=== PATIENT | female | born 1980 | race Caucasian/White ===

== ENCOUNTER 2022-01-14 09:28 | Outpatient (CLI) | payer OTHER, SELFPAY ==
--- NOTE | 2022-01-14 09:51 | ECG_ITS ---
Measurements Intervals [place] Rate: 81 P: 8 NE: 168 QRS: 68 QRSD: 89 T: 65 QT: 375 QTc: 436 Interpretive Statements SINUS RHYTHM NO PREVIOUS ECG AVAILABLE FOR COMPARISON Electronically Signed On 01-14-2022 11:26:33 DISPUTE RESOLUTION SPECIALIST by Frank Cali M.D.
[2022-01-14 10:52] LABS: Basophils Absolute Auto 0.1 K/mm3 (0.0-0.1); Basophils Percent Auto 0.6 % (0.2-1.2); Eosinophils Absolute Auto 0.2 K/mm3 (0-0.3); Eosinophils Percent Auto 1.9 % (0-4.4); Hematocrit 41.6 % (37.0-47.0); Hemoglobin 13.4 g/dL (12.0-15.0); Immature Granulocyte Absolute 0.07 K/mm3 (0.00-0.031); Immature Granulocyte Percent A 0.9 % (0-0.5); Lymphocytes Absolute Auto 2.56 K/mm3 (0.9-3.2); Lymphocytes Percent Auto 32.3 % (18.3-44.2); Mean Corpuscular HGB Conc 32.2 g/dl (32-36); Mean Corpuscular Hemoglobin 27.1 pg (26-34); Mean Platelet Volume 8.7 fl (7.4-10.4); Monocytes Absolute Auto 0.4 K/mm3 (0.1-0.6); Monocytes Percent Auto 4.9 % (2.6-8.5); Neutrophils Absolute Auto 4.7 K/mm3 (1.3-6.7); Neutrophils Percent Auto 59.4 % (45.5-73.1); Platelet Count Result 441 k/mm3 (150-375); Red Blood Count 4.95 M/mm3 (4.2-5.4); Red Cell Distribution Width 12.8 % (11.5-14.5); White Blood Count 7.9 K/mm3 (4.5-10.0)
== END 2022-01-14 09:29 | disposition home or self-care (01) ==
LOC: ANHSURGERY 09:33
PROVIDERS: PCP Nurse Practitioner Family; Visit Provider Obstetrics & Gynecology
DX: Z01.812 Encounter for preprocedural laboratory examination (principal); Z01.810 Encounter for preprocedural cardiovascular examination; N81.4 Uterovaginal prolapse, unspecified; I10 Essential (primary) hypertension
CPT/HCPCS: 36415; 85025; 86850; 86900; 86901; 93005

== ENCOUNTER 2022-01-18 00:26 | Day surgery (SDC) | payer OTHER, SELFPAY ==
[2022-01-08 15:15] VITALS: BMI 49.9
--- NOTE | 2022-01-08 15:22 | PC.NURSE ---
Report to the Outpatient Waiting Room, entrance under the green pavilion located off [facility], at time 6:00 on date 01/18/22. Planned Procedure Time: 7:30. Time changes happen often and if your time is changed the preop area will call you the afternoon before. - You and your visitor will be asked to self-screen and do not enter if you have any COVID symptoms. - Only one visitor is requested with a max of two and NO children visitors are allowed at this time. - The patient visitor may be requested to leave or wait in car when not with patient due to distancing restrictions. - A mask is optional within the hospital. Patients may have clear liquids (water, carbonated beverages, clear teas, apple juice) until 3 hours prior to surgery (4:30) with a maximum of 20 ounces. - No food from midnight until time of surgery Take the following medications with a SIP of water the morning of surgery: N/A Medications to discontinue per physician: N/A Date to take last dose: N/A Please no make-up, nail irish, hairspray, perfume, deodorant, or body powder the day of surgery. No jewelry (including any body piercings) or valuables the day of surgery, leave them at home. Please take a shower or bath the night before, or the morning of, surgery with an antibacterial soap. Wear comfortable, loose fitting clothing. - Jewelry must be removed prior to entering the operating room. Rings and piercings that are not removed may be cut off. - The hospital will not accept responsibility for valuables. - Please leave all valuables, including medications, at home the day of surgery. If you are going home after surgery, a licensed [employer] flatbed driver must drive you home. - NO public transportation without another adult if you receive anesthesia. - We recommend that an adult stay with you for 24 hours following discharge. - We also recommend that you do not drive, make important decision, drink alcoholic beverages, or take any drugs that were not prescribed by your health care provider for at least 24 hours after your discharge time. Follow any additional instructions given to you from your surgeon. If you or anyone in your household have experienced Covid symptoms in the past week, please notify your surgeon or the nurse liaison at the phone number below for possible testing. Telephone instructions given to PT - AISHA RG and asked if any additional questions and then verbalized understanding. Patient advised to call surgeon office or pre surgery nurse liaison [phone] if any additional questions.
--- NOTE | 2022-01-16 07:46 | PM.IMHP ---
H&P: HPI History of Present Illness Date/Time: 01/16/22 07:46 Chief Complaint: Uterine prolapse with irregular bleeding refractory to medical therapy Narrative: this is a 41-year-old female who is admitted for robotic hysterectomy and bilateral salpingectomy secondary to bleeding enlarged uterus and pelvic pain. Risks and benefits reviewed including not exclusive of , aspiration pneumonia, bleeding, transfusion, perforation injury to bowel, bladder, ureters, or other internal organs the need for open laparotomy. She received the ACOG handout entitled hysterectomy as well as the de [facility]ami handout. She had all questions answered and asked to proceed she did sign the [facility] consent form as well PMFSH Social History Social History Smoking packs per day: 1.5 Smoking cigarettes per day: 30.0 Years smoked: 10 Smoking pack-years: 15.00 Smoking status: Former smoker Tobacco type: cigarettes Smoking end date: 02/10/05 Alcohol intake: never Substance use: never Substance use type: does not use Spiritual care concerns: No Meds Home Medications and Allergies Home Medications Medication Instructions Recorded Confirmed Type No Home Medications 01/08/22 01/08/22 History Allergies Allergy/AdvReac Type Severity Reaction Status Date / Time hydralazine Allergy Flushing Verified 01/08/22 15:14 Exam Const: General: cooperative, healthy appearing and comfortable Nutritional Appearance: obese Orientation/consciousness: oriented to person, oriented to place and oriented to time HENMT: Head: normal to inspection Resp: Effort & Inspection: normal respiratory effort Cardio: Rate: regular rate Rhythm: regular rhythm Heart sounds: S1 normal heart sound present and S2 normal heart sound present GI: Inspection: normal to inspection and obesity Auscultation: normal bowel sounds : Speculum Exam - Vagina: normal appearance of the vagina Speculum Exam - Cervix: normal appearance of the cervix Bimanual exam- vagina & uterus: enlarged and Uterine tenderness Bimanual Exam- Adnexa, other: normal adnexae Assessment and Plan Assessment and plan (1) Uterine prolapse: Code(s): N81.4 - Uterovaginal prolapse, unspecified Status: Acute (2) Pelvic pain: Code(s): R10.2 - Pelvic and perineal pain Status: Acute (3) Vaginal bleeding: Code(s): N93.9 - Abnormal uterine and vaginal bleeding, unspecified Status: Acute Plan robotic total vaginal hysterectomy and bilateral salpingectomy
[2022-01-18] VITALS (12 sets, daily range): BP systolic 91–189; BP diastolic 56–107; PULSE 56–92; RESP 15–19; TEMP 36–37.5; O2SAT 95–99
[2022-01-18] MEDS: ACETAMINOPHEN 500 MG TABLET 1000 MG PO (06:45)
[2022-01-18] MEDS: LACTATED RINGERS 1,000 ML 30 ML IV CONT ×2 (07:00→09:45)
[2022-01-18] MEDS: KETOROLAC 15 MG/ML VIAL (*BKC) IV PUSH (07:10)
--- NOTE | 2022-01-18 07:11 | WPDHPUPDATE1 ---
History and Physical Update Update Date/Time: 01/18/22 07:11 History and Physical has been reviewed, including an updated exam of the patient. There are NO changes in the patient's condition. Risks, benefits, and alternatives have been discussed and questions answered. Patient agrees to proceed with procedure.
--- NOTE | 2022-01-18 07:15 | P.PNAN_ITS ---
Anes - Initial Pre Proc Eval Procedure: Operation Date: 01/18/22 07:30 Proposed Procedures p Robotic Assisted Total Vaginal Hysterectomy with Bilateral Salpingectomy - Ariel Burton MD Date/Time: 01/18/22 07:15 Surgeon: Ariel Burton MD Pre Op Diagnosis: 2nd deg uterine prolapse, pain, irregular bleeding Patient Data Age: 41 Gender: F Height: 1.65 m Weight: 138.7 kg Last Vital Signs Temp 36.0 C L 01/18/22 06:54 Pulse 92 01/18/22 06:54 Resp 16 01/18/22 06:54 BP 172/90 H 01/18/22 06:54 Pulse Ox 99 01/18/22 06:54 O2 Del Method Room Air 01/18/22 06:54 Allergies Allergy/AdvReac Type Severity Reaction Status Date / Time hydralazine Allergy Flushing Verified 01/18/22 06:24 Home Medications Medication Instructions Recorded Confirmed Type albuterol sulfate 90 mcg/actuation 90 mcg inhalation PRN 01/18/22 01/18/22 History aerosol inhaler amlodipine 5 mg tablet 5 mg PO DAILY 01/18/22 01/18/22 History amoxicillin 500 mg capsule 500 mg PO DAILY 01/18/22 01/18/22 History hydrocodone 5 mg-acetaminophen 325 1 tablet PO Q4H PRN pain #30 tabs 01/18/22 Rx mg tablet rimegepant 75 mg disintegrating 75 mg PO PRN 01/18/22 01/18/22 History tablet (Nurtec ODT) Patient hx anesthesia problems: none Family hx anesthesia problems: none Results Review: All pre-operative results and documents have been reviewed as part of the pre- operative evaluation. [facility] Past Medical History Medical History (Updated 01/18/22 @ 07:16 by Daniele Casillas MD) Asthma PARTH (obstructive sleep apnea) Social History Social History Smoking packs per day: 1.5 Smoking cigarettes per day: 30.0 Years smoked: 10 Smoking pack-years: 15.00 Smoking status: Former smoker Tobacco type: cigarettes Smoking end date: 02/10/05 Alcohol intake: never Substance use: never Substance use type: does not use Living arrangements: with family Spiritual care concerns: No Anes - Eval Final PreProcedure Day of Procedure 01/18/22 07:15 Patient weight: super morbidly obese Heart: regular rate and rhythm Lungs: decreased breath sounds Airway: Mallampati scale class II Neurological: alert and oriented Last oral intake: >/= 8 hours ASA classification: III Emergent: no Anesthetic plan: proceed Anesthesia type and monitoring: general ETT and standard monitoring Results Review: All pre-operative results and documents have been reviewed as part of the pre- operative evaluation. Informed Consent: The patient's anesthetic plan and its attendant risks and benefits were discussed with the patient/family/POA. Questions were solicited and answers provided to the satisfaction of the patient/family/POA.
[2022-01-18] MEDS: ceFAZolin 3 GM/D5W 100 ML 100 ML IVPB (07:30)
--- NOTE | 2022-01-18 08:47 | W.PM.PROC2 ---
Procedure Note - Detailed Date of Procedure 01/18/22 Pre-op Diagnosis 2nd deg uterine prolapse, pain, irregular bleeding Post-op Diagnosis Same Procedure Performed Robotic total vaginal hysterectomy and bilateral salpingectomy Surgeon Ariel Burton MD Anesthesia General Indications this is a 41-year-old female with uterine prolapse enlarged uterus bleeding Findings enlarged uterus that appeared adenomyosis ECMO normal-appearing ovaries and tubes Description of Procedure the patient is prepped draped in the sterile fashion placed in dorsal lithotomy position. Under excellent general trach anesthesia weighted speculum placed posterior fornix vagina. Anterior lip of the cervix grasped with single-tooth tenaculum the uterus sounded to 10cm. Serial dilatation with fragmented dilators performed followed by passes the 8. MILI and the 3. Cold cup. Next the 16 Pashto catheter placed bladder drained clear urine the weighted speculum and single-tooth removed. The gloves were changed. Suprapubic incision made the Veress needle passed in the abdomen. Abdomen filled with CO2 gas 15mmmmmercury. The 8mm trocar advanced the abdomen. Downside visualized no injury seen. Gas reattached the patient placed in Trendelenburg. Right left lateral flap incisions made thinking and the 8mm trocars advanced underDirect visualization assuring no injury right upper quadrant incision made and the 8mm trocar advanced under direct visualization assuring no injury. The robot was docked. Attention was turned to the console. The left round ligament was grasped, burned, cut. Anterior bladder flap was formed by sharply dissecting the peritoneum and reflecting the bladder caudally to the opposite round ligament which was clamped, burned, cut. Next the left fallopian tube was skeletonized removed from the attachment to the ovary and left attached to the uterine origin. This was repeated on the contralateral side with the right tube. Next utero-ovarian ligament was skeletonized to conserve the right ovary this was clamped, burned, cut. Next the left utero-ovarian ligament was skeletonized clamped being burning and cutting until reaching the previously cut round ligament. The cardinal broad ligaments on the left were then serially skeletonized clamping burning and cutting and bringing this down lateral edge of the uterus hugging the cervix uterus until the uterine vessels could be seen on the left. These were individually clamped, burned, cut there were large and tortuous. Cardinal broad ligaments on the right were serially skeletonized clamping burning cutting hugging the cervix uterus until the uterine vessels could be seen on the right. These were individually clamped, burned, cut. Excellent blanching of the uterus and cervix were noted. Colpotomy incision made in the cervix uterus and tubes removed through the vagina. Vagina was then closed with continuous running 0V lock from lateral edge to lateral edge back to the midline. Irrigation undertaken until clear. Hemostasis was assured. The robot was undocked. The gas removed from the abdomen. The trocars removed. Incisions closed with 4 Monocryl and glue. The patient was awakened and went to recovery in satisfactory condition. All sponge, needle, instrument counts were correct. Estimated Blood Loss 25 Drains No Packing No Pathology Yes Complications No immediate complications Condition Stable Disposition PACU
[2022-01-18] MEDS: fentaNYL CITRATE INJ (*CRX) 100 MCG/2 ML VIAL 25 MCG IV PUSH ×2 (09:35→09:55)
[2022-01-18] MEDS: DEXTROSE 5%/LACTATED RINGERS 1,000 ML 125 ML IV CONT (10:36)
[2022-01-18] MEDS: KETOROLAC 30 MG/ML VIAL (*BKC) IV PUSH (10:37)
[2022-01-18] MEDS: ENOXAPARIN 40 MG/0.4 ML SYRINGE SUB-Q (10:37)
--- NOTE | 2022-01-18 14:55 | P.DS_ITS ---
DS: Admitting Diagnosis Discharge Date 01/19/2022 Admitting Diagnosis vaginal bleeding/pelvic pain/ prolapse DS: Discharge Diagnosis Discharge Diagnosis (1) Vaginal bleeding: Code(s): N93.9 - Abnormal uterine and vaginal bleeding, unspecified Status: Acute (2) Pelvic pain: Code(s): R10.2 - Pelvic and perineal pain Status: Acute (3) Uterine prolapse: Code(s): N81.4 - Uterovaginal prolapse, unspecified Status: Acute DS: Summary Hospital Course Reason for hospitalization: patient was admitted for robotic total vaginectomy salpingectomy. Hospital Course: She robotic total vaginal hysterectomy and bilateral salpingectomy 01/18/2022. Her hospital course unremarkable. She remained afebrile. She was up, voiding without difficulty, ambulating complaints. Time Spent with Patient Time attestation: Total time spent providing and/or coordinating discharge services: Exam Const: General: cooperative, healthy appearing and comfortable Nutritional Appearance: average body habitus Orientation/consciousness: oriented to person, oriented to place and oriented to time HENMT: Head: normal to inspection Resp: Effort & Inspection: normal respiratory effort GI: Inspection: normal to inspection, incision ( Wounds clean dry and intact ), Pannus present and obesity Auscultation: normal bowel sounds DS: Data Data Completed and Pending Pending studies at discharge: Pending at discharge 01/18/22 08:46 Surgical [PTH] Routine Discharge Plan Discharge Patient Disposition: Home, Self-Care Discharge Instructions: Call or return if temperature above 100.4? F, increased abdominal pain, increased vaginal bleeding or any new problems. Patient Instructions: Laparoscopic Hysterectomy (DC) Stand Alone Forms: General Discharge Instructions Follow-up/Referrals: Ariel Thomson MD [Physician] - 2 Weeks Discharge Medications: New hydrocodone-acetaminophen 5-325 mg tablet 1 tablet PO Q4H PRN (Reason: pain) Qty: 30 0RF Continued amoxicillin 500 mg capsule 500 mg PO DAILY Label Comments: Pt on for strep, been on over a week amlodipine 5 mg tablet 5 mg PO DAILY albuterol sulfate 90 mcg/actuation HFA aerosol inhaler 90 mcg INHALATION PRN Nurtec ODT 75 mg tablet,disintegrating 75 mg PO PRN
[2022-01-18] MEDS: HYDROcodone/acetaminophen (*CRX) 5-325 MG TABLET 1 TAB PO (15:57)
[2022-01-18] MEDS: IBUPROFEN 600 MG TABLET PO (19:34)
[2022-01-18] MEDS: DOCUSATE SODIUM 100 MG CAPSULE PO (19:35)
[2022-01-18] MEDS: amLODIPine BESYLATE 5 MG TABLET PO (20:58)
[2022-01-19 00:07] VITALS: PULSE 90
[2022-01-19] MEDS: LABETALOL HCL INJ 100 MG/20 ML VIAL 200 MG IV PUSH (00:07)
[2022-01-19 05:27] LABS: Basophils Percent Auto 0.2 % (0.2-1.2); Hematocrit 36.6 % (37.0-47.0); Hemoglobin 11.8 g/dL (12.0-15.0); Immature Granulocyte Absolute 0.08 K/mm3 (0.00-0.031); Immature Granulocyte Percent A 0.5 % (0-0.5); Lymphocytes Absolute Auto 2.59 K/mm3 (0.9-3.2); Lymphocytes Percent Auto 16.9 % (18.3-44.2); Mean Corpuscular HGB Conc 32.2 g/dl (32-36); Mean Corpuscular Hemoglobin 26.6 pg (26-34); Mean Corpuscular Volume 82.4 fl (80-100); Mean Platelet Volume 8.7 fl (7.4-10.4); Monocytes Absolute Auto 0.6 K/mm3 (0.1-0.6); Monocytes Percent Auto 3.8 % (2.6-8.5); Neutrophils Absolute Auto 12.1 K/mm3 (1.3-6.7); Neutrophils Percent Auto 78.6 % (45.5-73.1); Platelet Count Result 425 k/mm3 (150-375); Red Blood Count 4.44 M/mm3 (4.2-5.4); White Blood Count 15.4 K/mm3 (4.5-10.0)
[2022-01-19 08:45] VITALS: BP 150/84; PULSE 88; RESP 18; TEMP 36.6; O2SAT 97
--- NOTE | 2022-01-19 08:51 | PM.GYNPNOP ---
TRANSPORTATION SECURITY SCREENER - A/P Assessment and plan (1) Vaginal bleeding: Code(s): N93.9 - Abnormal uterine and vaginal bleeding, unspecified Status: Acute Assessment and Plan: A: POD#1, s/p robotic assisted TVHBS, doing well. P: Home to f/u 2 weeks. (2) Pelvic pain: Code(s): R10.2 - Pelvic and perineal pain Status: Acute Postoperative Procedures: Procedures Operation Date: 01/18/22 07:30 Actual Procedure Side Surgeon p Robotic Assisted Total Vaginal Hysterectomy with Bilateral Salpingectomy Bilateral Ariel Burton MD Time Spent With Patient Time: Total time spent is greater than 50% in coordination of care (as documented) at patient's floor/unit and/or counseling patient: Time with patient: less than 15 minutes TRANSPORTATION SECURITY SCREENER- PN:Subj Post-Op Subjective Date/time seen: 01/19/22 08:51 Interval history: Pain OK. Tolerating diet. Voiding. Would like to go home. Exam Narrative: AVSS I/O OK ABD soft, nontender. Incisions c/d/i. EXT nontender TRANSPORTATION SECURITY SCREENER - PN: Obj Data Vital Signs Vital Signs: Vital Signs - 24 hr 01/18/22 09:01 01/18/22 09:15 01/18/22 09:31 Temperature 37.5 C Pulse Rate 57 L 56 L 64 Respiratory Rate 16 19 18 Blood Pressure 91/60 L 108/56 L 139/78 Pulse Oximetry 95 95 98 Oxygen Delivery Simple Face Mask Simple Face Mask Simple Face Mask Oxygen Flow Rate 8 8 8 01/18/22 09:32 01/18/22 09:46 01/18/22 10:00 Temperature Pulse Rate 63 60 Respiratory Rate 17 15 Blood Pressure 142/76 H 116/99 H Pulse Oximetry 95 97 Oxygen Delivery Room Air Nasal Cannula Nasal Cannula Oxygen Flow Rate 2 2 01/18/22 11:48 01/18/22 10:15 01/18/22 10:10 Temperature 37.1 C 36.7 C Pulse Rate 73 62 Respiratory Rate 16 16 Blood Pressure 168/77 H 155/74 H Pulse Oximetry 99 99 98 Oxygen Delivery Nasal Cannula Oxygen Flow Rate 2 01/18/22 12:30 01/18/22 16:00 01/18/22 16:00 Temperature 37.1 C Pulse Rate 73 92 73 Respiratory Rate 16 18 16 Blood Pressure 152/81 H Pulse Oximetry 99 95 99 Oxygen Delivery Nasal Cannula Room Air Oxygen Flow Rate 2 01/18/22 19:35 01/19/22 00:07 Temperature 36.4 C Pulse Rate 70 90 Respiratory Rate 18 Blood Pressure 189/107 H Pulse Oximetry 97 Oxygen Delivery Oxygen Flow Rate Intake/Output Intake/Output: Intake & Output 01/16/22 01/17/22 01/18/22 01/19/22 23:59 23:59 23:59 23:59 Intake Total 1000 700 Output Total 3030 1200 Balance -2030 -500 Meds/Results Medications: Active Medications Generic Name Dose Route Start Last Admin Trade Name Freq PRN Reason Stop Dose Admin Hydrocodone Bitart/Acetaminophen 1 tab 01/18/22 10:04 01/18/22 15:57 Hydrocodone/Acetaminophen (*Crx) 5-325 Mg Tablet PO 1 tab Q3H PRN Administration Pain Rated 5 or Less Hydrocodone Bitart/Acetaminophen 1 tab 01/18/22 10:04 Hydrocodone/Acetaminophen (*Crx) 10-325 Mg Tablet PO Q3H PRN Pain Rated 6 or Greater Amlodipine Besylate 5 mg 01/18/22 20:00 01/18/22 20:58 Amlodipine Besylate 5 Mg Tablet PO 5 mg DAILY ILIANA Administration Docusate Sodium 100 mg 01/18/22 10:04 01/18/22 19:35 Docusate Sodium 100 Mg Capsule PO 100 mg BID ILIANA Administration Enoxaparin Sodium 40 mg 01/18/22 10:04 01/18/22 10:37 Enoxaparin 40 Mg/0.4 Ml Syringe SUB-Q 40 mg DAILY ILIANA Administration Dextrose/Lactated Ringer's 1,000 mls @ 125 mls/hr 01/18/22 10:04 01/18/22 10:36 Dextrose 5%/Lactated Ringers IV CONT 125 mls/hr .Q8H ILIANA Administration Ibuprofen 600 mg 01/18/22 10:04 01/18/22 19:34 Ibuprofen 600 Mg Tablet PO 600 mg Q6H PRN Administration Cramping Ketorolac Tromethamine 30 mg 01/18/22 10:04 01/18/22 10:37 Ketorolac 30 Mg/Ml Vial (*Bkc) IV PUSH 01/23/22 10:03 30 mg Q6H PRN Administration Pain Rated 4-6 Naloxone HCl 0.1 mg 01/18/22 10:04 Naloxone Hcl 0.4 Mg/Ml Vial IV PUSH Q2M PRN Respiratory rate less than 10 Ondansetron HCl
--- NOTE | 2022-01-19 08:53 | P.DS_ITS ---
DS: Admitting Diagnosis Discharge Date 01/19/22 Admitting Diagnosis Enlarged uterus, pain DS: Discharge Diagnosis Discharge Diagnosis (1) Vaginal bleeding: Code(s): N93.9 - Abnormal uterine and vaginal bleeding, unspecified Status: Acute (2) Pelvic pain: Code(s): R10.2 - Pelvic and perineal pain Status: Acute DS: Summary Hospital Course Hospital Course: Admitted to the hospital on the date of scheduled surgery. Did well postoperatively. Time Spent with Patient Time attestation: Total time spent providing and/or coordinating discharge services: DS: Data Data Completed and Pending Pending studies at discharge: Pending at discharge 01/18/22 08:46 Surgical [PTH] Routine Labs on day of discharge: Labs from last 24 hours 01/19/22 04:09 WBC 15.4 H RBC 4.44 Hgb 11.8 L Hct 36.6 L MCV 82.4 MCH 26.6 MCHC 32.2 RDW 13.0 Plt Count 425 H MPV 8.7 Immature Gran % (Auto) 0.5 Neut % (Auto) 78.6 H Lymph % (Auto) 16.9 L [place] % (Auto) 3.8 Eos % (Auto) 0.0 Baso % (Auto) 0.2 Lymph # (Auto) 2.59 [place] # (Auto) 0.6 Eos # (Auto) 0.0 Baso # (Auto) 0.0 Abs Immat Gran (auto) 0.08 H Absolute Neuts (auto) 12.1 H Absolute Nucleated RBC 0.0 Nucleated RBC % 0.0 Discharge Plan Discharge Patient Disposition: Home, Self-Care Discharge Instructions: Call or return if temperature above 100.4? F, increased abdominal pain, increased vaginal bleeding or any new problems. Patient Instructions: Laparoscopic Hysterectomy (DC) Stand Alone Forms: General Discharge Instructions Follow-up/Referrals: Ariel Thomson MD [Physician] - 2 Weeks Discharge Medications: New hydrocodone-acetaminophen 5-325 mg tablet 1 tablet PO Q4H PRN (Reason: pain) Qty: 30 0RF Continued amoxicillin 500 mg capsule 500 mg PO DAILY Label Comments: Pt on for strep, been on over a week amlodipine 5 mg tablet 5 mg PO DAILY albuterol sulfate 90 mcg/actuation HFA aerosol inhaler 90 mcg INHALATION PRN Nurtec ODT 75 mg tablet,disintegrating 75 mg PO PRN
[2022-01-19 09:00] VITALS: PULSE 88; RESP 18; O2SAT 97
[2022-01-19] MEDS: IBUPROFEN 600 MG TABLET PO (09:15)
[2022-01-19] MEDS: ENOXAPARIN 40 MG/0.4 ML SYRINGE SUB-Q (09:15)
[2022-01-19] MEDS: amLODIPine BESYLATE 5 MG TABLET PO (09:16)
[2022-01-19] MEDS: DOCUSATE SODIUM 100 MG CAPSULE PO (09:16)
== END 2022-01-19 10:50 | disposition home or self-care (01) ==
LOC: ANHSURGERY 07:12 → ANHOB2 10:10
PROVIDERS: PCP Nurse Practitioner Family; Visit Provider Obstetrics & Gynecology
PROC: (CPT 58552; principal; 2022-01-18 07:30)
DX: N81.2 Incomplete uterovaginal prolapse (principal); N93.9 Abnormal uterine and vaginal bleeding, unspecified; D25.1 Intramural leiomyoma of uterus; R10.2 Pelvic and perineal pain; N87.9 Dysplasia of cervix uteri, unspecified; J45.909 Unspecified asthma, uncomplicated; G47.33 Obstructive sleep apnea (adult) (pediatric); Z79.51 Long term (current) use of inhaled steroids; E66.01 Morbid (severe) obesity due to excess calories; Z68.43 Body mass index [BMI] 50.0-59.9, adult; Z87.891 Personal history of nicotine dependence
CPT/HCPCS: 58552; S2900; 36415; 85025; 88307; 99199; A9270; J0330; J0690; J1100; J1650; J1885; J2250; J2704; J2710; J3010; J7030; J7120; J7121

== ENCOUNTER 2022-11-07 08:02 | Outpatient (CLI) | payer OTHER, SELFPAY ==
--- NOTE | ~2022-11-07 | US_ITS ---
Limited Abdominal Sonogram: Real-time sonographic imaging of the right upper quadrant was performed. Clinical History: Right upper quadrant pain Findings: The liver appears normal with no evidence of mass lesion or bile duct dilatation. Main por naldo vein demonstrates normal direction of flow. The gallbladder is well distended, and appears normal with no evidence of gallstone or wall thickening. The common bile duct measures 4 mm. The visualize d pancreas, aorta, and IVC are unremarkable. Impression: No significant abnormality seen. Reviewed, dictated and finalized at location M. Impression: No significant abnormality seen.
== END 2022-11-07 08:03 | disposition home or self-care (01) ==
PROVIDERS: PCP Family Medicine; Visit Provider Physician Assistant
DX: R10.11 Right upper quadrant pain (principal)
CPT/HCPCS: 76705

== ENCOUNTER 2023-01-13 13:02 | Outpatient (CLI) | payer OTHER, SELFPAY ==
--- NOTE | ~2023-01-13 | US_ITS ---
EXAMINATION: US thyroid DATE: 01/13/2023 14:27 INDICATION: Nontoxic goiter TECHNIQUE: Multiple ultrasound images of the thyroid were obtained. COMPARISON: None. FINDINGS: The right thyroid lobe measures 5.1 x 2.4 x 2.8 cm. The left thyroid lobe measures 5.5 x 2.3 x 3.2 c m. There are similar-appearing solid wider than tall solid heterogeneously isoechoic to hypoechoic m asses at the inferior aspect of the left and right thyroid lobes with lobular margins and without ech ogenic foci (TI-RADS 4, moderately suspicious , FNA if >=1.5 cm, annual followup is >=1 cm) on the le ft measuring 3.1 x 2.2 x 2.2 cm and on the right measuring 3.0 x 2.2 x 3.0 cm. The left thyroid lobe there is a 1 cm wider than tall solid isoechoic nodule with hypoechoic halo, smooth margins and witho ut echogenic foci and a 1.1 cm very hypoechoic wider than tall solid nodule with smooth margins and w ithout echogenic foci, both also TI RADS 4. IMPRESSION: 1. Multinodular goiter. Recommend ultrasound-guided biopsy of the ~3 cm TI RADS 4 nodules at the infe rior left and right thyroid lobes. 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 Multinodular goiter. Recommend ultrasound-guided biopsy of the ~3 cm TI RADS 4 nodules at the inferior left and right thyroid lobes.
== END 2023-01-13 13:03 | disposition home or self-care (01) ==
PROVIDERS: PCP Family Medicine; Visit Provider Family Medicine
DX: E04.2 Nontoxic multinodular goiter (principal)
CPT/HCPCS: 76536

== ENCOUNTER 2023-02-05 12:35 | Outpatient (CLI) | payer OTHER, SELFPAY ==
--- NOTE | ~2023-02-05 | US_ITS ---
EXAMINATION: US FNA w image guidance, US FNA additional DATE: 02/05/2023 13:49 (accession [id number]), 02/05/2023 14:58 (accession [id number]) INDICATION: Bilateral thyroid nodules TECHNIQUE: A time-out was performed to verify the patient's name, date of , and procedure to be performed . The procedure and its benefits and risks were discussed with the patient. Risks specifically discus sed included bleeding and infection. The patient understood the risks and agreed to proceed. The neck was prepped and draped in the usual sterile manner. A total of 7 mL 1% lidocaine was used for local anesthesia provided the left and right thyroid lobes. A total of 6 passes were made with a 25G needle into the right thyroid nodule and 6 passes were made with a 25G needle into the left thyroid nodule. Appropriate needle location was documented with continuous sonographic guidance. Sterile bandages w ere applied. There were no immediate complications. FINDINGS: Grayscale ultrasound images demonstrate biopsy needles advanced into both of the 3 cm masses at the i nferior left and at the inferior right thyroid lobes. IMPRESSION: 1. Successful ultrasound-guided fine needle aspiration of a 3 cm TI RADS 4 mass at the inferior righ t thyroid. Successful ultrasound-guided fine-needle aspiration of a 3 cm TI RADS 4 mass at the inferior left thy roid. 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 Successful ultrasound-guided fine needle aspiration of a 3 cm TI RADS 4 mas s at the inferior right thyroid. Successful ultrasound-guided fine-needle aspiration of a 3 cm TI RADS 4 mass at the inferior left thyroid.
== END 2023-02-05 12:36 | disposition home or self-care (01) ==
PROVIDERS: PCP Family Medicine; Visit Provider Family Medicine
DX: E04.9 Nontoxic goiter, unspecified (principal)
CPT/HCPCS: 10005; 10006; 88172; 88173; 88305

== ENCOUNTER 2023-02-18 12:30 | Outpatient (RCR) | payer OTHER, SELFPAY ==
--- NOTE | 2023-01-09 14:08 | PTOPEVAL1 ---
Assessment and note entered by Kimberly Najera, PT Evaluation Information Assessment Status Evaluation Diagnosis left knee pain, patellofemoral syndrome unspec knee Subjective Information Pt reports left knee pain. States started about , no traumatic event. Went from hardly hurting to hurting really badly very quickly. no traumatic event, would hurt worst at night. Took Diclofenac and this has helped. Doesn't know when it's going to hurt. States had her chiropractor adjust her and notes when knee was moved inward was very painful. 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 Demo's laterally deviated patella bilat, patella crepitus, falling arches in gait, multiple tight muscle groups, decresaed LLE strength compared to right, Pt has been provided initial HEP, and educated on cryotherapy for inflammation. Pt will benefit from physical therapy to address deficits and resolve discomfort. Plan of Care Interventions Electrical Stimulation,Hot Pack/Cold Pack,Manual Therapy,Neuro Re-education,Therapeutic Activities, Therapeutic Exercise,Ultrasound PT Services Indicated Yes Treatment Frequency and 1-2x weekly x 4 weeks Duration These treatments will address the objective and functional deficits as defined above. The patient will be advanced safely and appropriately in order for the patient to progress towards his/her prior level of function. Additional exercises will be introduced and as well as a comprehensive home exercise program upon discharge, if needed, ?to ensure carryover of functional gains achieved in the clinic. This treatment plan has been reviewed and agreement upon by the patient.
--- NOTE | 2023-01-09 14:09 | OPREHPOC ---
Outpatient Therapy Plan of Care This is a Multidisciplinary Plan of Care that may contain components documented by all disciplines (PT, OT, and ST.) PT Problem 1 PT Problem #1 Knowledge Deficit PT Goal 1 Goal Pt will be independent in HEP Pt will verbalize understanding of diagnosis and prognosis Target Visit 8 PT Problem 2 PT Problem #2 Pain PT Goal 1 Goal Pt will report greatest pain level at 3/10 or less to improve ADLs Target Visit 8 PT Goal 2 Goal Pt will report resolution of pain to return to PLOF Target Visit 12 PT Problem 3 PT Problem #3 Impaired Strength PT Goal 1 Goal Pt will demo equal strength RLE and LLE in all tested planes Target Visit 8 PT Goal 2 Goal Pt will demo strength of 5/5 in all tested planes Target Visit 12
--- NOTE | 2023-02-19 10:26 | PTOPDC ---
Assessment and note entered by Kimberly Najera, PT Assessment Status Discharge Diagnosis left knee pain, patellofemoral syndrome unspec knee Subjective Information Pt reports had some good days and some bad days since last visit. Reports is random and doesn't seem to be related to what she is doing. States may be related to weather seems to be the trend Has been achy today and yesterday. Reports doesn't feel like it is out of place anymore but continues to have the in general achy and continues to have sensation of knee doesn't want to straight. But this doesn't happen all the time either. Reports was able to exercise one day and was able to look at arch supports but not purchase them. Pt reports is very busy wiht her 4 children's schedules thus doesn't have much time to accomplish homework assigned by PT Reported Pain Level Pain Score 6: Self Report Assessment PT Clinical Summary Pt has attended therapy 5 sessions over 6 weeks. In this amount of time, patient has been unable to obtain arch supports or perform hre HEP as directed due to her busy lifestyle. She reports some minor improvements such as not feeling as if patella is out of place but continues to have instances in which her knee does not want to straighten after sitting. Pt also shows some mild improvements in muscle flexibility and postural alignment. However due to lack of progress and inability to participate in program as directed, pt is being discharged from plan of care.
== END 2023-02-19 10:32 | disposition home or self-care (01) ==
LOC: ANHHIPT 12:30
PROVIDERS: PCP Family Medicine; Visit Provider Family Medicine
DX: M22.2X9 Patellofemoral disorders, unspecified knee (principal)
CPT/HCPCS: 97014; 97110; 97161; 97530; 97750; G0283